=== PATIENT | male | born 2000 | race Two or more races ===

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

== ENCOUNTER 2022-06-04 13:02 | Inpatient (IN) ==
[2022-06-04 14:10] LABS: ABS Eosinophils 0.1 10^3/ul (0-0.6); ABS Lymphocytes 1.5 10^3/ul (1.0-4.8); ABS Monocytes 0.6 10^3/ul (0-0.8); ABS Neutrophils 4.4 10^3/ul (1.5-7.7); Hematocrit 46 % (42-52); Hemoglobin 15.2 g/dL (14.0-18.0); Lymphocyte % 22.9 %; Mean Corpuscular HGB Conc 33 g/dL (31-36); Mean Corpuscular Hemoglobin 29 pg (27-31); Mean Corpuscular Volume 86 fL (80-94); Nucleated Red Blood Cells % 0.1; Platelet Count 234 10^3/uL (150-450); Red Blood Count 5.33 10^6 /uL (4.18-5.48); Red Cell Distribution Width 13 % (10-15); White Blood Count 6.6 10^3/uL (3.5-10.8)
[2022-06-04 14:38] LABS: Urine Appearance Clear; Urine Bilirubin Negative (Negative); Urine Blood Negative (Negative); Urine Color Straw; Urine Glucose Negative (Negative); Urine Ketones Negative (Negative); Urine Nitrite Negative (Negative); Urine Protein Negative (Negative); Urine Specific Gravity 1.006 (1.002-1.030); Urine Urobilinogen Negative (Negative)
[2022-06-04 14:52] LABS: ALT 15 U/L (7-52); AST 14 U/L (13-39); Acetaminophen < 15 mcg/mL; Albumin/Globulin Ratio 1.9 (1-3); Alcohol, S < 13 mg/dL (<13); Alkaline Phosphatase 80 U/L (35-149); Anion Gap 6 mmol/L (2-11); Blood Urea Nitrogen 18 mg/dL (6-24); CO2 Carbon Dioxide 29 mmol/L (22-32); Chloride 102 mmol/L (101-111); Creatinine, Serum 0.89 mg/dL (0.67-1.17); Globulin 2.6 g/dL (2-4); Glucose 113 mg/dL (70-100); Potassium 4.3 mmol/L (3.5-5.0); Salicylate < 2.50 mg/dL (<30); Sodium 137 mmol/L (135-145); Total Protein 7.6 g/dL (6.4-8.9); eGFR CKD-EPI 126.6 (>60)
[2022-06-04 15:08] LABS: TSH Ultra Thyroid Stim Horm 0.97 mcIU/mL (0.34-5.60)
[2022-06-04 15:28] LABS: Urine Benzodiazepine Screen None Detected (None Detect); Urine Cannabinoids Screen Presumptive Positive (None Detect); Urine Opiates Screen None Detected (None Detect)
[2022-06-04] MEDS ORDERED: Al Hydrox/Mg Hydrox/Simet LIQ 30 ML UDC PO PRN (15:35)
[2022-06-04] MEDS: OLANZapine 5 mg TAB *ODT PO PRN (22:06)
[2022-06-06 08:23] LABS: HDL Cholesterol 68.2 mg/dL
[2022-06-06] MEDS: Senna TAB 8.6 mg TAB PO SCH (14:55)
[2022-06-07] MEDS: Senna TAB 8.6 mg TAB PO SCH (09:00)
[2022-06-07] MEDS: OLANZapine 5 mg TAB *ODT PO PRN (10:13)
[2022-06-08] MEDS: Senna TAB 8.6 mg TAB PO SCH (12:25)
[2022-06-08] MEDS: OLANZapine 5 mg TAB *ODT PO PRN (22:23)
[2022-06-09] MEDS: Senna TAB 8.6 mg TAB PO SCH (09:16)
[2022-06-09] MEDS: OLANZapine 5 mg TAB *ODT PO PRN (09:32)
[2022-06-10] MEDS: Senna TAB 8.6 mg TAB PO SCH (10:34)
[2022-06-11] MEDS: Senna TAB 8.6 mg TAB PO SCH (08:52)
[2022-06-12] MEDS: Senna TAB 8.6 mg TAB PO SCH (10:47)
[2022-06-13] MEDS: Senna TAB 8.6 mg TAB PO SCH (11:12)
[2022-06-14 08:00] VITALS: BP 129/86
[2022-06-14] MEDS: Senna TAB 8.6 mg TAB PO SCH (08:51)
== END 2022-06-14 17:37 | disposition home or self-care (01) | DRG 897 ==
LOC: ED 13:02 → EDHOLD 15:35 → BSU 20:01
PROVIDERS: ADMIT Psychiatry & Neurology Psychiatry; ATTEND Psychiatry & Neurology Psychiatry

== ENCOUNTER 2023-10-20 15:30 | Inpatient (IN) ==
[2023-10-20 16:27] LABS: ABS Eosinophils 0.1 10^3/uL (0.0-0.5); ABS Lymphocytes 2.5 10^3/uL (1.0-4.8); ABS Monocytes 1.1 10^3/uL (0.0-1.1); ABS Neutrophils 3.2 10^3/uL (1.5-7.6); ABS Nucleated RBC 0.04 10^3/ul; Eosinophil % 1.7 %; Hematocrit 44.5 % (38-53); Hemoglobin 15.2 g/dL (13.2-16.3); Mean Corpuscular Hemoglobin 29.5 pg (27-33); Mean Corpuscular Hgb Conc 34.2 g/dL (31-36); Mean Corpuscular Volume 86.4 fL (80-97); Nucleated Red Blood Cells % 0.6 %/100WBC (0.0-0.8); Platelet Count 254 10^3/uL (150-450); Red Blood Count 5.15 10^6/uL (4.06-5.63); Red Cell Distribution Width 13.1 % (12-17); White Blood Count 6.9 10^3/uL (3.6-10.2)
[2023-10-20 17:05] LABS: ALT 55 U/L (7-52); AST 39 U/L (13-39); Acetaminophen < 15 mcg/mL; Albumin 5.5 g/dL (3.2-5.2); Albumin/Globulin Ratio 1.9 (1-3); Alcohol, S < 13 mg/dL (<13); Alkaline Phosphatase 85 U/L (35-149); Anion Gap 8 mmol/L (2-16); Blood Urea Nitrogen 16 mg/dL (6-24); CO2 Carbon Dioxide 26 mmol/L (22-32); Calcium 10.3 mg/dL (8.6-10.3); Chloride 103 mmol/L (101-111); Creatinine, Serum 0.88 mg/dL (0.67-1.17); Globulin 2.9 g/dL (2-4); Glucose 113 mg/dL (70-100); Potassium 3.9 mmol/L (3.5-5.0); Salicylate < 2.50 mg/dL (<30); Sodium 137 mmol/L (135-145); Total Bilirubin 0.7 mg/dL (0.2-1.0); Total Protein 8.4 g/dL (6.4-8.9); eGFR CKD-EPI 125.5 (>60)
[2023-10-20 17:20] LABS: TSH Ultra Thyroid Stim Horm 1.65 mcIU/mL (0.34-5.60)
[2023-10-20 17:45] LABS: Urine Appearance Clear; Urine Bilirubin Negative (Negative); Urine Blood Negative (Negative); Urine Color Colorless; Urine Glucose Negative (Negative); Urine Ketones Negative (Negative); Urine Nitrite Negative (Negative); Urine Protein Negative (Negative); Urine Specific Gravity 1.001 (1.002-1.030); Urine Urobilinogen Negative (Negative)
[2023-10-20 18:03] LABS: Urine Benzodiazepine Screen None Detected (None Detect); Urine Cannabinoids Screen None Detected (None Detect); Urine Opiates Screen None Detected (None Detect)
[2023-10-20 20:30] LABS: Urine Benzodiazepine Screen None Detected (None Detect); Urine Cannabinoids Screen Presumptive Positive (None Detect); Urine Opiates Screen None Detected (None Detect)
[2023-10-20 21:20] LABS: Urine Buprenorphine Screen None Detected (None Detect); Urine Fentanyl Screen None Detected (None Detect); Urine Hydrocodone Screen None Detected (None Detect)
[2023-10-20] MEDS ORDERED: Al Hydrox/Mg Hydrox/Simet LIQ 30 ML UDC PO PRN (22:28)
[2023-10-20] MEDS ORDERED: Nicotine GUM 2MG FRUIT FLAVOR PO PRN (23:00)
[2023-10-20] MEDS ORDERED: Nicotine Lozenge mini 2 MG LOZNG.MINI MT PRN (23:00)
[2023-10-21 08:45] LABS: HDL Cholesterol 89.1 mg/dL
[2023-10-21] MEDS: Nicotine PATCH 21 MG/24 HR PATCH TRANSDERM SCH (10:24)
[2023-10-21] MEDS: Vitamin THERAPEUTIC TAB PO SCH (10:24)
[2023-10-21] MEDS: OLANZapine 5 mg TAB *ODT PO PRN (16:35)
[2023-10-21] MEDS ORDERED: OLANZapine 10 mg TAB*ODT PO SCH (21:00)
[2023-10-23] MEDS ORDERED: Polyethylene Glycol 3350 17 GM PACKET PO PRN (05:22)
[2023-10-23] MEDS: OLANZapine 5 mg TAB *ODT PO PRN (12:41)
[2023-10-23] MEDS: OLANZapine 5 mg TAB *ODT ONE (13:21)
[2023-10-24] MEDS ORDERED: Saline NASAL SPRAY 0.65% BTL BOTH NARES PRN (18:49)
[2023-10-29 10:15] VITALS: BP 159/81
== END 2023-10-29 13:50 | disposition home or self-care (01) | DRG 897 ==
LOC: ED 15:30 → EDHOLD 22:01 → BSU 22:22
PROVIDERS: ADMIT Psychiatry & Neurology Psychiatry; ATTEND Psychiatry & Neurology Psychiatry